=== PATIENT | male | born 1980 | race Caucasian/White ===

== ENCOUNTER 2017-05-29 20:06 | Emergency (ER) | payer OTHER ==
[~2017-05-29] VITALS: Ht 185.4 cm; Wt 91.0 kg
[~2017-05-29 20:06] MED LIST: LORA-474 PO
[2017-05-29 20:22] VITALS: BP 135/93; PULSE 85; RESP 18; O2SAT 97
[2017-05-29] MEDS ORDERED: KEPP10002 PO (20:36)
[2017-05-29] MEDS ORDERED: ASPI-516 CHEW (20:36)
[2017-05-29] MEDS ORDERED: METO1TAB42 PO (20:36)
[2017-05-29] MEDS ORDERED: LORazepam 1 MG TAB PO ONE (20:45)
[2017-05-29] MEDS ORDERED: LOSA100T2 PO (20:50)
[2017-05-29 21:44] VITALS: BP 132/86; PULSE 89; RESP 18; TEMP 96.8; O2SAT 99
--- NOTE | 2017-05-29 22:40 | PD ---
HPI Chief Complaint: Seizure Time Seen by Provider: 20:34 Travel History International Travel<30 days: No Contact w/Intl Traveler<30days: No Traveled to known affect area: No History of Present Illness HPI So 37-year-old man with a history of seizure disorders as a child, recent recurrence of the past year or so, especially over the past couple months, who presents under a Bedoya act. He has had several seizures over the past couple weeks. He was admitted to [facility] in [place] and October 2015, as well as in April of this year. His states that he had CT EEG and MRI , she believes but is not sure. He apparently is become more aggressive and threatening over the past several weeks she's got more frustrated. 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 He staying in thousand milligrams of Keppra twice a day, last took at 5 PM today. He is here under a Bedoya act because his called the police today. She reports that he woke up "in a rage". She was at work she was taxing and calling her, depressed, threatening to kill himself. When she called the police at home, he began hitting himself on the wall, and apparently induced another seizure. Patient is frustrated also because he is due to have a 72 hour EEG which his is been working to arrange as an outpatient. He follows with a neurologist at [facility] [place] [facility]. Patient refusing any interventions at this time. He's refusing blood work drawn. He is refusing to sign consent for records. No seizures in the ED. She did take some oral Ativan. History Past Medical History Narrative Medical Seizures Tetanus Vaccination: Unknown Social History Alcohol Use: Yes (4 12oz vodka per day) Tobacco Use: Yes Allergies-Medications (Allergen,Severity, Reaction): Coded Allergies: No Known Allergies (Verified Allergy, Unknown, 05/29/17) Reported Meds & Prescriptions Reported Meds & Active Scripts Active Ativan (Lorazepam) 1 Mg Tab 1 Mg PO BID Reported Losartan-Hydrochlorothiazide 100-25 Mg Tab 1 Tab PO DAILY Metoprolol Succinate ER 24 HR (Metoprolol Succinate) 25 Mg Tab 50 Mg PO DAILY Keppra (Levetiracetam) 1,000 Mg Tab 1,000 Mg PO BID Aspirin 81 Mg Chew 81 Mg CHEW DAILY Review of Systems Except as stated in HPI: all other systems reviewed are Neg Physical Exam Narrative GENERAL: 37-year-old man, posturing and aggressive SKIN: Focused skin assessment warm/dry. HEAD: No obvious trauma. Scleral icterus. No injection or drainage. ENT: No nasal bleeding or discharge. Mucous membranes pink and moist. NECK: Trachea midline. No JVD. CARDIOVASCULAR: Regular rate and rhythm. No murmur appreciated. RESPIRATORY: No accessory muscle use. Clear to auscultation. Breath sounds equal bilaterally. GASTROINTESTINAL: Abdomen soft, non-tender, nondistended. Hepatic and splenic margins not palpable. MUSCULOSKELETAL: No obvious deformities. No clubbing. No cyanosis. No edema. NEUROLOGICAL: Awake and alert. No obvious cranial nerve deficits. Motor grossly within normal limits. Normal speech. PSYCHIATRIC: Threatening and hostile, directable at times but aggressive. Data Data Last Documented VS Vital Signs Date Time Temp Pulse Resp B/P (MAP) Pulse Ox O2 Delivery O2 Flow Rate FiO2 05/29/17 21:44 96.8 89 18 132/86 (101) 99 Room Air Orders Orders Complete Blood Count With Diff (05/29/17 20:44) Comprehensive Metabolic Panel (05/29/17 20:44) Psych Screen (05/29/17 20:44) Drug Screen, Random Urine (05/29/17 20:44) Alcohol (Ethanol) (05/29/17 20:44) Lorazepam (Ativan) (05/29/17 20:45) MDM Medical Decision Making Medical Screen Exam Complete: Yes Emergency Medical Condition: Yes Differential Diagnosis Seizures, depression, suicidality, behavior disturbance, other Narrative Course Medical decision making Is a 37-year-old male presents to the emergency department for psychiatric evaluation under a Bedoya act for behavior disturbance in aggressive behavior including depressive thoughts and threatening suicide. He is very uncooperative. He's had extensive workup for his seizures that reportedly all been normal. He had epilepsy as a child. He reports compliance with this Keppra. He was amenable to taking an oral Ativan in the ED but became aggressively more threatening and posture and tone and was taken to J pod. Blood work was ordered and patient was refusing. I don't think it's been a yield any light on the patient's seizure disorder is he's had it previously. I don't see any evidence of significant trauma. Recommend he continue his Breath , blood work if he is agreeable, and psychiatric consultation. Patient is medically clear for psychiatric evaluation. Obdulio King MD May 29, 2017 22:40
[2017-05-30 02:20] VITALS: BP 136/82; PULSE 81; RESP 18; TEMP 98.1; O2SAT 100
[2017-05-30 06:47] VITALS: BP 113/60; PULSE 83; RESP 18; TEMP 98.5; O2SAT 95
[2017-05-30] MEDS ORDERED: levETIRAcetam 500 MG TAB PO SCH (09:00)
[2017-05-30 10:53] VITALS: BP 143/80; PULSE 80; RESP 18
[2017-05-30 11:59] VITALS: BP 143/80; PULSE 80; RESP 18
--- NOTE | 2017-05-30 12:07 | PD ---
History of Present Illness Chief Complaint: Seizure Time Seen by Provider: 11:30 Travel History International Travel<30 Days: No Contact w/Intl Traveler<30days: No Known affected area: No Legal Status Legal Status: Bedoya Act Bedoya Act Signed By: Genie Teixeira History of Present Illness: 37-year-old male seen under a Bedoya act after making suicidal comments. Patient states he made the wrong comment and he is not really suicidal. In fact , he denies any suicidal or homicidal ideation, plan or intent. He demonstrates no psychotic symptoms and his cognition is intact. He is verbally nneka for safety and he is competent to do so. 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 However, despite his current complaints of what appear to be partial complex seizures, the patient states he drinks daily alcohol. He was advised to stop drinking alcohol as it lowers the seizure threshold. PFSH Past Medical History Depression: Yes Inguinal Hernia: Yes Shingles: Yes Tetanus Vaccination: Unknown Psychiatric History Psychiatric History Hx Psychiatric Treatment: PATIENT DENIES. SAYS ONE PREVIOUS BEDOYA ACT FOR SUICIDAL THREATS History of Inpatient Treatment: Yes Guns or firearms in home: No Social History Hx Alcohol Use: Yes (4 12oz vodka per day) Hx Tobacco Use: Yes Hx Substance Use: Yes Substance Use Type: Alcohol Hx of Substance Use Treatment: No Allergies-Medications (Allergen,Severity, Reaction): Coded Allergies: No Known Allergies (Verified Allergy, Unknown, 05/29/17) Reported Meds & Prescriptions Reported Meds & Active Scripts Active Ativan (Lorazepam) 1 Mg Tab 1 Mg PO BID Reported Losartan-Hydrochlorothiazide 100-25 Mg Tab 1 Tab PO DAILY Metoprolol Succinate ER 24 HR (Metoprolol Succinate) 25 Mg Tab 50 Mg PO DAILY Keppra (Levetiracetam) 1,000 Mg Tab 1,000 Mg PO BID Aspirin 81 Mg Chew 81 Mg CHEW DAILY Review of Systems ROS Limitations: Uncooperative Except as stated in HPI: all other systems reviewed are Neg Mental Status Examination Appearance: Appropriate Consciousness: Alert Orientation: x4 Motor Activity: Normal gait Speech: Unremarkable Language: Adequate Fund of Knowledge: Adequate Attention and Concentration: Adequate Memory: Unremarkable Mood: Irritable Affect: Irritable Thought Process & Associations: Intact Thought Content: Appropriate Hallucination Type: None Delusion Type: None Suicidal Ideation: No Suicidal Plan: No Suicidal Intention: No Homicidal Ideation: No Homicidal Plan: No Homicidal Intention: No Insight: Adequate Judgment: Adequate MDM Medical Decision Making Medical Record Reviewed: Yes Assessment/Plan Patient interviewed at bedside. Medical record reviewed electronically. Case discussed with nurse Tony. Nurse Tony called , who is fine with having the patient come home and vouchers for his safety. Patient is not felt to meet criteria for Bedoya act or involuntary psychiatric hospitalization. Orders Orders Complete Blood Count With Diff (05/29/17 20:44) Comprehensive Metabolic Panel (05/29/17 20:44) Psych Screen (05/29/17 20:44) Drug Screen, Random Urine (05/29/17 20:44) Alcohol (Ethanol) (05/29/17 20:44) Lorazepam (Ativan) (05/29/17 20:45) Levetiracetam (Keppra) (05/30/17 09:00) Diet Regular Basic (05/30/17 Breakfast) Diet Regular Basic (05/30/17 Lunch) Results Vital Signs Date Time Temp Pulse Resp B/P (MAP) Pulse Ox O2 Delivery O2 Flow Rate FiO2 05/30/17 11:59 80 18 143/80 (101) Room Air 05/30/17 10:53 80 18 143/80 (101) Room Air 05/30/17 06:47 98.5 83 18 113/60 (77) 95 Room Air 05/30/17 02:20 98.1 81 18 136/82 (100) 100 Room Air 05/29/17 21:44 96.8 89 18 132/86 (101) 99 Room Air 05/29/17 20:22 85 18 135/93 (107) 97 Laboratory Tests Test 05/30/17 08:20 Urine Opiates Screen NEG Urine Barbiturates Screen NEG Urine Amphetamines Screen NEG Urine Benzodiazepines Screen NEG Urine Cocaine Screen NEG Urine Cannabinoids Screen NEG Diagnosis Primary Impression: Adjustment disorder with mixed disturbance of emotions and conduct Rupert Mendoza MD May 30, 2017 12:07
--- NOTE | 2017-05-30 12:21 | PD ---
Physical Exam Time Seen by Provider: 12:[address] Mendoza has evaluated the patient, lifted the Bedoya act and cleared the patient for discharge. Data Data Last Documented VS Vital Signs Date Time Temp Pulse Resp B/P (MAP) Pulse Ox O2 Delivery O2 Flow Rate FiO2 05/30/17 12:03 05/30/17 11:59 80 18 Room Air 05/30/17 06:47 98.5 95 Orders Orders Complete Blood Count With Diff (05/29/17 20:44) Comprehensive Metabolic Panel (05/29/17 20:44) Psych Screen (05/29/17 20:44) Drug Screen, Random Urine (05/29/17 20:44) Alcohol (Ethanol) (05/29/17 20:44) Lorazepam (Ativan) (05/29/17 20:45) Levetiracetam (Keppra) (05/30/17 09:00) Diet Regular Basic (05/30/17 Breakfast) Diet Regular Basic (05/30/17 Lunch) Labs Laboratory Tests Test 05/30/17 08:20 Urine Opiates Screen NEG Urine Barbiturates Screen NEG Urine Amphetamines Screen NEG Urine Benzodiazepines Screen NEG Urine Cocaine Screen NEG Urine Cannabinoids Screen NEG MDM Supervised Visit with [facility]: No Narrative Course Dr. Mendoza has evaluated the patient, lifted the Bedoya act and cleared the patient for discharge. Patient contracts safety. Denies suicidal or homicidal ideations. Patient will be provided community resource packet to /[facility] for follow-up. Has friends and family for support. Patient was medically cleared by alternate provider prior to psych screening. Patient has been evaluated by psychiatry and and is now cleared for discharge. Diagnosis Primary Impression: Adjustment disorder with mixed disturbance of emotions and con... Referrals: [facility] (Out patient) [facility] Primary Care Physician Psychiatrist [facility] Patient Instructions: General Instructions, Mood Disorders (ED), Medical Clearance for Psychiatric Care (ED) Departure Forms: Tests/Procedures Additional Instruction: DX: Adjustment Disorder with Mixed Disturbance of Emotions and Conduct Please return to ED if symptoms worsen. Contract safety to your self and others Follow-up with psychiatry Follow-up with primary care provider Follow-up with Josep Baron Return to the emergency department immediately with worsening of symptoms Med/Other Pt SpecificInfo: No Change to Meds, No Meds Exist/No RX given Disposition: 01 DISCHARGE HOME Condition: Stable Enriqueta Etienne [employer] S[employer] APPLICATOR May 30, 2017 12:21
== END 2017-05-30 13:47 | disposition home or self-care (01) ==
LOC: NEPC 20:06 → NEPJ 05-30 13:47
DX: F43.25 Adjustment disorder with mixed disturbance of emotions and conduct (principal); Z72.0 Tobacco use
CPT/HCPCS: 80307; 99284